=== PATIENT | male | born 1955 | race Caucasian/White ===

== ENCOUNTER → 2024-03-13 06:42 | Outpatient (REF) | payer MEDICARE, SELFPAY | LOC: PAVMRI 06:42 | PROVIDERS: ATTENDING PHYSICIAN Physician Assistant Surgical; FAMILY PHYSICIAN Family Medicine | DX: M19.011 Primary osteoarthritis, right shoulder (principal) | CPT/HCPCS: 73221 ==

== ENCOUNTER → 2024-03-29 08:37 | Outpatient (REF) | payer MEDICARE, SELFPAY | LOC: HWRAD 08:37 | PROVIDERS: ATTENDING PHYSICIAN Physician Assistant Surgical; FAMILY PHYSICIAN Family Medicine | DX: M19.011 Primary osteoarthritis, right shoulder (principal) | CPT/HCPCS: 73200 ==